=== PATIENT | male | born 2000 | race Caucasian/White ===

== ENCOUNTER 2022-05-10 06:19 | Emergency (ER) | payer SELFPAY ==
[~2022-05-10] VITALS: Ht 177.8 cm; Wt 74.8 kg
[2022-05-10 06:24] VITALS: BP 152/78
--- NOTE | 2022-05-10 06:24 | NUR ---
PT KASH ALEMAN, TAKEN TO CHAIR B
--- NOTE | 2022-05-10 07:20 | NUR ---
Patient discharged with v/s stable. Written and verbal after care instructions given and explained. Patient verbalized understanding. with steady gait. All questions addressed prior to discharge. Advised to follow up with PMD.
== END 2022-05-10 07:20 | disposition home or self-care (01) ==
LOC: MED 06:19
DX: Z02.89 Encounter for other administrative examinations (principal); V49.9XXA Car occupant (driver) (passenger) injured in unspecified traffic accident, initial encounter; Y93.89 Activity, other specified; Y92.411 Interstate highway as the place of occurrence of the external cause; Y99.8 Other external cause status
CPT/HCPCS: 99283